=== PATIENT | female | born 1990 ===

== ENCOUNTER 2021-12-01 18:17 | Inpatient (IN) | payer MEDICAID, OTHER ==
[2021-12-01] MEDS ORDERED: HALOPERIDOL LACTATE 5 MG/ML 1 ML VIAL IM PRN (19:34)
[2021-12-01] MEDS ORDERED: MAGNESIUM HYDROXIDE 2,400 MG/10 ML CUP PO PRN (19:34)
[2021-12-01] MEDS ORDERED: MAG HYDROX/AL HYDROX/SIMETH 30 ML CUP PO PRN (19:34)
[2021-12-01] MEDS ORDERED: LORazepam 1 MG TAB PO PRN (19:34)
[2021-12-01] MEDS ORDERED: ACETAMINOPHEN TAB 325 MG TAB PO PRN (19:34)
[2021-12-01] MEDS ORDERED: haloperidoL 5 MG TAB PO PRN (19:42)
[2021-12-01] MEDS ORDERED: LORazepam 2 MG/ML INJ IM PRN (19:42)
[2021-12-02] MEDS: NICOTINE 14MG/24HR PATCH TRANSDERM SCH (08:48)
[2021-12-02 11:11] LABS: Basophils % (A) 1 %; Eosinophils # (A) 0.1 k/uL (0-0.7); Eosinophils % (A) 2 %; HCT 41.5 % (34.0-46.0); HGB 13.7 gm/dL (11.4-16.0); Lymphocytes # (A) 1.6 k/uL (1.0-4.8); Lymphocytes % (A) 28 %; MCH 30.4 pg (25.0-35.0); MCV 91.9 fL (80.0-100.0); Monocytes # (A) 0.5 k/uL (0-1.0); Monocytes % (A) 8 %; Neutrophils # (A) 3.4 k/uL (1.3-7.7); Neutrophils % (A) 58 %; Platelet Count 278 k/uL (150-450); RBC 4.52 m/uL (3.80-5.40); RDW 12.8 % (11.5-15.5); WBC 5.8 k/uL (3.8-10.6)
[2021-12-02 11:31] LABS: ALT 15 U/L (4-34); AST 20 U/L (14-36); African American GFR (CKD) >90 (>60 ml/min/1.73 sqM); Albumin 4.4 g/dL (3.5-5.0); Alkaline Phosphatase 51 U/L (38-126); Anion Gap 6 mmol/L; Blood Urea Nitrogen 11 mg/dL (7-17); Calcium 9.8 mg/dL (8.4-10.2); Carbon Dioxide 29 mmol/L (22-30); Chloride 103 mmol/L (98-107); Glucose 80 mg/dL (74-99); Non-African American GFR(CKD) >90 (>60 ml/min/1.73 sqM); Sodium 138 mmol/L (137-145); Total Bilirubin 0.3 mg/dL (0.2-1.3); Total Protein 7.4 g/dL (6.3-8.2)
--- NOTE | 2021-12-02 12:31 | P.HP ---
Psychiatric H&P - . H&P Date: 12/02/21 History & Physical: Allergies Allergy/AdvReac Type Severity Reaction Status Date / Time No Known Allergies Allergy Verified 12/02/21 01:53 Vital Signs Temp 98.3 F 12/02/21 01:36 Pulse 71 12/02/21 01:36 Resp 18 12/02/21 01:36 BP 116/72 12/02/21 01:36 Pulse Ox 99 12/02/21 01:36 FiO2 Intake & Output 12/01/21 12/02/21 12/02/21 18:59 06:59 18:59 Weight 70.3 kg 70.2 kg Laboratory Last Values WBC 5.8 k/uL (3.8-10.6) 12/02/21 10:10 RBC 4.52 m/uL (3.80-5.40) 12/02/21 10:10 Hgb 13.7 gm/dL (11.4-16.0) 12/02/21 10:10 Hct 41.5 % (34.0-46.0) 12/02/21 10:10 MCV 91.9 fL (80.0-100.0) 12/02/21 10:10 MCH 30.4 pg (25.0-35.0) 12/02/21 10:10 MCHC 33.0 g/dL (31.0-37.0) 12/02/21 10:10 RDW 12.8 % (11.5-15.5) 12/02/21 10:10 Plt Count 278 k/uL (150-450) 12/02/21 10:10 MPV 8.0 12/02/21 10:10 Neutrophils % 58 % 12/02/21 10:10 Lymphocytes % 28 % 12/02/21 10:10 Monocytes % 8 % 12/02/21 10:10 Eosinophils % 2 % 12/02/21 10:10 Basophils % 1 % 12/02/21 10:10 Neutrophils # 3.4 k/uL (1.3-7.7) 12/02/21 10:10 Lymphocytes # 1.6 k/uL (1.0-4.8) 12/02/21 10:10 Monocytes # 0.5 k/uL (0-1.0) 12/02/21 10:10 Eosinophils # 0.1 k/uL (0-0.7) 12/02/21 10:10 Basophils # 0.0 k/uL (0-0.2) 12/02/21 10:10 Sodium 138 mmol/L (137-145) 12/02/21 10:10 Potassium 5.0 mmol/L (3.5-5.1) 12/02/21 10:10 Chloride 103 mmol/L (98-107) 12/02/21 10:10 Carbon Dioxide 29 mmol/L (22-30) 12/02/21 10:10 Anion Gap 6 mmol/L 12/02/21 10:10 BUN 11 mg/dL (7-17) 12/02/21 10:10 Creatinine 0.75 mg/dL (0.52-1.04) 12/02/21 10:10 Est GFR (CKD-EPI)AfAm >90 (>60 ml/min/1.73 sqM) 12/02/21 10:10 Est GFR (CKD-EPI)NonAf >90 (>60 ml/min/1.73 sqM) 12/02/21 10:10 Glucose 80 mg/dL (74-99) 12/02/21 10:10 Calcium 9.8 mg/dL (8.4-10.2) 12/02/21 10:10 Total Bilirubin 0.3 mg/dL (0.2-1.3) 12/02/21 10:10 AST 20 U/L (14-36) 12/02/21 10:10 ALT 15 U/L (4-34) 12/02/21 10:10 Alkaline Phosphatase 51 U/L (38-126) 12/02/21 10:10 Total Protein 7.4 g/dL (6.3-8.2) 12/02/21 10:10 Albumin 4.4 g/dL (3.5-5.0) 12/02/21 10:10 TSH 1.500 mIU/L (0.465-4.680) 12/02/21 10:10 12/02/21 12:24 This is a psychiatric evaluation on Vida Cole who is a 31-year-old female and was hospitalized with a referral from the [facility]? Patient reports that she has that approximately 9 hospitalizations since age 14 When asked about her diagnoses and treatment she states that she's been diagnosed with "everything" Patient mentioned bipolar disorder depression and anxiety PTSD and schizophrenia She states that she does not agree with any of the diagnoses except for the anxiety disorder She says that she does not take any medications except for the nicotine supplement She said that she has no interest in taking any medications either She states that she came into the hospital because of "delusions of grandeur" he said that she thought that she was part of the FBI She denies that she is currently experiencing any such thoughts She denies any intention of harming herself or others She states that 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 Perceptions: Patient denies any visual hallucinations and denies any auditory hallucinations. Though content: There is no evidence of paranoid delusional thought content, although patient comes across as rather projective and seems to rationalize and intellectualize. Patient seemed to be very knowledgeable in the psychiatric terminology Thought process: Goal-directed sequential Low self-esteem and confidence Memory and concentration: Grossly intact for the purposes of this session. Judgment and insight: [place] and rationalizing Problem-solving skills are concrete with some denial about her illness Plan: -Patient continues to meet criteria for inpatient psychiatric admission for symptom stabilization and safety. -Medications: Patient has declined to consider any medications and does not meet the criteria for any involuntary medication administration at this time -NRT - nicotine patch -SW on board for discharge planning. Encouraged the patient to participate in milieu. [ Approximate length of stay will be 2-4 days Estevan Lauren Hicks 12/02/2021]
[2021-12-02 17:30] LABS: Chol/HDL Ratio 3.24 Ratio; LDL Cholesterol,Calculated 77.4 mg/dL (0.0-131.0)
[2021-12-03 06:52] VITALS: RESP 16
[2021-12-03] MEDS: NICOTINE 14MG/24HR PATCH TRANSDERM SCH (09:31)
[2021-12-03] MEDS: OLANZapine 5 MG TAB PO SCH (16:04)
--- NOTE | 2021-12-03 19:19 | PN ---
PROGRESS NOTE DATE OF SERVICE: 12/03/2021 CHIEF COMPLAINT: The patient was admitted for delusions and suicidal thinking. INTERVAL HISTORY: The patient had a quiet day yesterday. She comes out on the unit. She attended groups. She socializes with peers. She has been cooperative with care and appropriate in her behavior. She slept well last night. Today she has been up and continues to do the same. She attends groups and seems to engage fairly well in the group process. She talked today about her previous admission at [facility] in August. She seemed to indicate it was for similar issues. She has been declining medications. When we talked about the issues, it was noted that she was fairly disorganized in her thoughts on the subject. She would make references to being on medications which she said caused her problems. She was vague about particulars. Throughout the conversation she would become quite tearful. When she talked about her past experience in treatment, she was very adamant about the idea that she would choose not to take medications. When I reviewed the issue that she was in a petition process and that potentially she could be court-ordered to take her take medications, that was quite distressing to her. I encouraged her to consider taking medications now while she is on the unit, as she has nursing around her 16/12 and that she could at least give a trial of some medications to see whether or not it would be a problem for her. When I discussed different medications, it is noted that she was quite adamant about the idea she did not want to take Haldol, though she was not clear about what experience she might have had with Haldol. When I raised the question of Zyprexa, she seemed to indicate she had been on it in the past, including having received some shots of Zyprexa. She said that she would be willing to take the medication as a trial while she is on the unit. I also reviewed with her issues relating to the petition process. MENTAL STATUS EXAM: Patient was restless. She gave good eye contact. She answered questions for the most part appropriately. At times her thoughts were somewhat disorganized, though she spoke coherently and in a goal-directed manner. Her affect was intense. She smiled some, though she also was intermittently tearful and could become quite distressed. Her mood was somewhat dysphoric, though her mood fluctuated considerably throughout the interview. She seemed moderately distressed. There were indications of thought disorder with delusional thinking. She was oriented and alert. ASSESSMENT: I will continue the current diagnosis and treatment plan. I would consider a diagnosis of bipolar disorder with psychotic features. I discussed medication options with the patient. She was willing to start Zyprexa. I will start 5 mg twice a day. The patient asked for medications if she does get into significant anxiety. As such, I will also add Zyprexa 5 mg twice a day p.r.n. The indication of Zyprexa is for apparent manic and psychotic symptoms as well as to address physiologic stress response relating to some of the stress issues she has been experiencing. We will focus on stabilization and discharge planning. IGLESIA / BUSHRAN: [id number] /
[2021-12-03 20:13] LABS: Appearance,Urine Clear (Clear); Bacteria,Urine Rare /hpf; Bilirubin,Urine Negative (Negative); Blood,Urine Negative (Negative); Color,Urine Colorless; Glucose,Urine (UA) Negative (Negative); Hyaline Casts,Urine 1 /lpf (0-2); Ketones,Urine Negative (Negative); Leukocyte Esterase,Urine Moderate (Negative); Nitrite,Urine Negative (Negative); Protein,Urine Negative (Negative); RBC,Urine <1 /hpf (0-5); Specific Gravity,Urine 1.004 (1.001-1.035); Squamous Epithelial Cell,Urine 2 /hpf (0-4); Urobilinogen,Urine <2.0 mg/dL (<2.0); WBC,Urine 2 /hpf (0-5)
[2021-12-03] MEDS ORDERED: diphenhydrAMINE 50 MG CAP PO STA (23:26)
[2021-12-03] MEDS ORDERED: LORazepam 1 MG TAB PO STA (23:26)
[2021-12-04] MEDS: OLANZapine 5 MG TAB PO SCH ×2 (08:39→21:57)
[2021-12-04] MEDS: NICOTINE 14MG/24HR PATCH TRANSDERM SCH (08:39)
--- NOTE | 2021-12-04 10:03 | P.PN ---
Progress Note - Text Progress Note Date: 12/04/21 Interval History: Patient was seen wandering the hallways and was directable and agreeable to stephanie ye with sports book writer in the office. Patient appears to be fairly focused on her diagnosis of "DID" today and proceeded to speak about the events that occurred prior to her coming into the hospital. She states that she is transfer from [facility]. She was difficult to redirect during conversation. To be emotionally labile. She states that she is "withdrawing" however was not specific about what she is withdrawing from. She claims that she does not like taking medications however is agreeable to continue with taking them. She claims that she is still having anxiety and depression. Apparently patient was having psychotic symptoms when she came in to the hospital. She was making some illogical statements however for the most part was fairly goal oriented and speaking of severe distress with her symptoms. She spoke briefly about her childhood and being "misdiagnosed". At this time patient denies any suicidal or homical ideations, intent or plan. Patient denies any auditory, visual hallucinations. Patient denies any side effects from the medications and has been compliant with meds. Mental Status Exam: General Appearance: Patient appears to be stated age is alert, difficult to redirect, and attempts to be cooperative. dyed hair. Behavior: Patient is calmly seated without any agitated behavior. Labile emotionally. Tearful. Speech: Patient's speech is fluent and nonpressured. Rambles. Mood/Affect: Mood is anxious and depressed, affect is congruent and tearful Suicidality/Homicidality: Patient denies having any suicidal or homicidal ideation intent or plan. Perceptions: Patient denies any visual hallucinations and denies any auditory hallucinations Though content/process: Rambles, tangential, illogical at times. Not endorsing any paranoia or delusions today. Memory and concentration: AOX3, grossly intact for the purposes of this session Judgment and insight: Superficial, Improving mildly Assessment Bipolar disorder with psychotic features Cluster B personality disorder Nicotine dependence Plan: -Patient continues to meet criteria for inpatient psychiatric admission for symptom stabilization and safety. Patient has not signed medication consent and was placed in patient's chart. -Medications: Switched olanzapine to 5 mg daily at bedtime for mood stabilization/psychosis, start Prozac 20 mg daily for mood and anxiety. -When necessary Ativan and Haldol for agitation/aggression. -NRT - nicotine patch -SW on board for discharge planning. Encouraged the patient to participate in milieu.
[2021-12-04] MEDS: FLUoxetine HCL 20 MG CAP PO SCH (10:23)
[2021-12-04] MEDS: OLANZapine 5 MG TAB PO PRN (16:47)
[2021-12-05] MEDS: FLUoxetine HCL 20 MG CAP PO SCH (08:47)
[2021-12-05] MEDS: NICOTINE 14MG/24HR PATCH TRANSDERM SCH (08:47)
--- NOTE | 2021-12-05 12:18 | P.PN ---
Progress Note - Text Progress Note Date: 12/05/21 Interval History: Patient was seen taking part in group today and was directable and agreeable to speak with fiction and nonfiction writer prose in the office. She claims that her mood and anxiety has been gradually improving. She states t hat she is homeless at this time and wants to have resources. She claims that her emotional lability has been improving. She claims that she has been going to groups and interacting with other patients on the unity fairly well. She was making some illogical statements however for the most part was fairly goal oriented and speaking of severe distress with her symptoms. At this time patient denies any suicidal or homical ideations, intent or plan. Patient denies any auditory, visual hallucinations. Patient denies any side effects from the medications and has been compliant with meds. Mental Status Exam: General Appearance: Patient appears to be stated age is alert, difficult to redirect, and attempts to be cooperative. dyed hair. Behavior: Patient is calmly seated without any agitated behavior. not tearful today. Speech: Patient's speech is fluent and nonpressured. Rambles, improving mildly. Mood/Affect: Mood is "a bit better", affect is congruent Suicidality/Homicidality: Patient denies having any suicidal or homicidal ideation intent or plan. Perceptions: Patient denies any visual hallucinations and denies any auditory hallucinations Though content/process: Rambles, improving mildly. Not endorsing any paranoia or delusions today. Memory and concentration: AOX3, grossly intact for the purposes of this session Judgment and insight: Improving mildly Assessment: Bipolar disorder with psychotic features Cluster B personality disorder Nicotine dependence Plan: -Patient continues to meet criteria for inpatient psychiatric admission for symptom stabilization and safety. Patient has not signed medication consent and was placed in patient's chart. -Medications: olanzapine 5 mg daily at bedtime for mood stabilization/psychosis, continue with Prozac 20 mg daily for mood and anxiety. -When necessary Ativan and Haldol for agitation/aggression. -NRT - nicotine patch -SW on board for discharge planning. Encouraged the patient to participate in milieu. likely discharge in 1-2 days back home.
[2021-12-05] MEDS: OLANZapine 5 MG TAB PO SCH (22:56)
--- NOTE | 2021-12-06 09:01 | P.HPMEDMHU ---
<Marcello Silveira - Last Filed: 12/06/21 19:17> History of Present Illness H&P Date: 12/06/21 History of Presenting Illness: Patient is a 31-year-old female with a past medical history of hepatitis C statu s post treatment with [facility] in 2020, history of polysubstance abuse with cocaine, marijuana and hallucinogens/mushrooms. Patient currently admitted to inpatient mental health unit secondary to suicidal ideations. We have been consulted for continued medical management throughout her hospitalization. Patient seen and fully evaluated on unit. Patient high per verbal and appears very anxious. Patient appeared to be defensive throughout assessment. She reports last menstrual cycle was last month status post plan B, current urine hCG negative. Patient denies having any headache, lightheadedness, dizziness, chest pain, palpitations, shortness of breath, abdominal pain, or experiencing any numbness/tingling/weakness in her extremities. Patient does report to daily vape use with marijuana and nicotine. She currently reports that she is depressed and has had thoughts of suicide but currently denies having a suicidal plan. Patient denies feeling anxious or experiencing any visual, tactile, or auditory hallucinations. Patient denies having any other concerns or needs at this time. Review of systems: Pertinent positives and negatives as discussed in HPI, a complete review of syst ems was performed and all other systems are negative. Physical exam: Vital signs reviewed and stable. General: Nontoxic, no distress and appears stated age. Derm: Skin warm and dry, normal coloration for ethnicity. Head: Atraumatic, normocephalic and symmetric. Eyes: EOMs intact, no lid lag, and anicteric sclera Mouth: no lip lesions, mucus membranes moist Cardiovascular: regular rate and rhythm with normal S1S2, no murmur, positive posterior tibial pulses bilaterally, and cap refill < 2 seconds. Lungs: Respirations even, regular, and unlabored on room air. Lungs CTA bilaterally, no rhonchi, no rales, no wheezing, and no accessory muscle usage. Abdominal: soft, nontender to palpation, no guarding, no appreciable organomegaly Ext: ROM intact. No gross muscle atrophy, no edema, no contractures Neuro: Speech clear, face symmetrical and CN II-XII grossly intact with no noted focal neuro deficits Psych: Alert and oriented to person, place, time, and situation. Appropriate and pleasant affect. Assessment and Plan of Care: Polysubstance abuse with cocaine, marijuana, and hallucinogens/mushrooms -Recommend cessation of use. Nicotine dependence -Recommend cessation of use. -Nicotine patch Suicidal ideation Bipolar disorder -Management per primary admitting psychiatric team. Thank you for allowing us to participate in the care of this pleasant patient. Do not hesitate to contact us with questions. Someone can be reached from the [facility] hospitalist group all hours of the day at [phone] or via [employer]. Past Medical History Past Medical History: No Reported History Additional Past Medical History / Comment(s): Per patient: she was cured for Hep C History of Any Multi-Drug Resistant Organisms: None Reported Past Surgical History: No Surgical Hx Reported Past Anesthesia/Blood Transfusion Reactions: No Reported Reaction Past Psychological History: Anxiety, Bipolar, PTSD Smoking Status: Current some day smoker, Vaper Additional Past Alcohol Use History / Comment(s): Patient states she use to abuse alcohol daily but then broke up with her BF and realized she had a problem and has been 60 days sober. Upon admission today she admits to having 2 drinks within the past 2 weeks. Past Drug Use History: Marijuana Medications and Allergies Home Medications Medication Instructions Recorded Confirmed Type FLUoxetine HCL [PROzac] 30 mg PO DAILY 30 Days cap 12/07/21 Rx Nicotine 14Mg/24Hr Patch [Habitrol] 1 patch TRANSDERM DAILY 14 Days 12/07/21 Rx patch QUEtiapine [SEROquel] 75 mg PO HS 30 Days tab 12/07/21 Rx Allergies Allergy/AdvReac Type Severity Reaction Status Date / Time No Known Allergies Allergy Verified 12/02/21 01:53 Physical Exam Vitals: Vital Signs Temp Pulse Resp BP 12/06/21 00:10 97.8 F 77 16 132/79 Cranial Nerve Examination - Cranial Nerves Cranial Nerve II- Optic: Intact Cranial Nerve III- Oculomotor: Intact Cranial Nerve IV- Trochlear: Intact Cranial Nerve V- Trigeminal: Intact Cranial Nerve - Abducens: Intact Cranial Nerve VII- Facial: Intact Cranial Nerve VIII- Auditory: Intact Cranial Nerve IX- Glossopharyngeal: Intact Cranial Nerve X- Vagus: Intact Cranial Nerve XI- Accessory: Intact Cranial Nerve XII- Hypoglossal: Intact Results CBC & Chem 7: 12/02/21 10:10 12/02/21 10:10 Thrombosis Risk Factor Assmnt - Choose All That Apply Any of the Below Risk Factors Present?: No Other Risk Factors: No Other congenital or acquired thrombophilia - If yes, enter type in comment: No Thrombosis Risk Factor Assessment Level: Very Low Risk <Dawood Romero - Last Filed: 12/07/21 17:59> History of Present Illness I reviewed the documentation as provided by the ANNABEL above, who is the original author of this note. I agree with the documented assessment and plan, with the following changes: none Physical Exam Vitals: Vital Signs Temp Pulse Resp BP 12/07/21 06:34 98 F 88 16 107/59 Results CBC & Chem 7: 12/02/21 10:10 12/02/21 10:10
[2021-12-06] MEDS: FLUoxetine HCL 20 MG CAP PO SCH (09:23)
[2021-12-06] MEDS: NICOTINE 14MG/24HR PATCH TRANSDERM SCH (09:23)
[2021-12-06] MEDS ORDERED: FLUoxetine HCL 10 MG CAP PO STA (10:37)
--- NOTE | 2021-12-06 11:10 | P.PN ---
Progress Note - Text Progress Note Date: 12/06/21 Interval History: Patient was seen taking part in group today and was directable and agreeable to speak with greeting card writer in the office. She claims that her mood and anxiety has been gradually improving however does state that she is having significant side effects from the olanzapine. She states that she is having blurry vision for the past 2 or 3 days and also claims that she is getting "[place]". She states that she would like to have the medications changed if possible. She appears to be more directable during conversation however does have some moments of tearfulness and spoke about "trauma" that she is trying to work through. She states that she is going to groups and participating with other people on the unit. She states that she was able to sleep fairly last night. Showering and also has a fair appetite. Not endorsing any delusions or paranoia today. At this time patient denies any suicidal or homical ideations, intent or plan. Patient denies any auditory, visual hallucinations. Mental Status Exam: General Appearance: Patient appears to be stated age is alert, difficult to redirect, and attempts to be cooperative. dyed hair. Behavior: Patient is calmly seated without any agitated behavior. tearful at times. Speech: Patient's speech is fluent and nonpressured, improving mildly. Mood/Affect: Mood is "better but still sad", affect is congruent and tearful Suicidality/Homicidality: Patient denies having any suicidal or homicidal ideation intent or plan. Perceptions: Patient denies any visual hallucinations and denies any auditory hallucinations Though content/process: more goal oriented and logical today. Not endorsing any paranoia or delusions today. Memory and concentration: AOX3, grossly intact for the purposes of this session Judgment and insight: Improving mildly Assessment: Bipolar disorder with psychotic features Cluster B personality disorder Nicotine dependence Plan: -Patient continues to meet criteria for inpatient psychiatric admission for symptom stabilization and safety. Patient has not signed medication consent and was placed in patient's chart. -Medications: Olanzapine 5 mg daily at bedtime for mood stabilization/psychosis, continue with Prozac 20 mg daily for mood and anxiety -When necessary Ativan and Haldol for agitation/aggression. -NRT - nicotine patch -SW on board for discharge planning. Encouraged the patient to participate in milieu. likely discharge tomorrow to [facility].
[2021-12-06] MEDS: OLANZapine 5 MG TAB PO PRN (11:23)
[2021-12-06] MEDS ORDERED: QUEtiapine 25 MG TAB PO SCH (21:00)
[2021-12-07 07:06] VITALS: BP 107/59; PULSE 88; TEMP 98
[2021-12-07] MEDS: NICOTINE 14MG/24HR PATCH TRANSDERM SCH (08:54)
[2021-12-07] MEDS ORDERED: FLUoxetine HCL 10 MG CAP PO SCH (09:00)
--- NOTE | 2021-12-07 11:13 | P.DS ---
Providers Date of admission: 12/02/21 01:28 Expected date of discharge: 12/07/21 Attending physician: Javier Momin MD Consults: 12/01/21 19:34 Consult Physician Routine Consulting Provider: Jeannie Trejo Consult Reason/Comments: medical management Do you want consulting provider notified?: Yes Primary care physician: Stated None - Discharge Diagnosis(es) (1) Bipolar disorder with psychotic features Current Visit: Yes Status: Acute Priority: High (2) Cluster B personality disorder Current Visit: Yes Status: Acute Priority: Medium (3) Nicotine dependence Current Visit: Yes Status: Acute Priority: Low Hospital Course: Admission HPI: Admission note was completed by Dr Aguilar "This is a psychiatric evaluation on Vida Cole who is a 31-year-old female and was hospitalized with a referral from the [facility]? Patient reports that she has that approximately 9 hospitalizations since age 14 When asked about her diagnoses and treatment she states that she's been diagnosed with "everything" Patient mentioned bipolar disorder depression and anxiety PTSD and schizophrenia She states that she does not agree with any of the diagnoses except for the anxiety disorder She says that she does not take any medications except for the nicotine supplement She said that she has no interest in taking any medications either She states that she came into the hospital because of "delusions of grandeur" he said that she thought that she was part of the FBI She denies that she is currently experiencing any such thoughts She denies any intention of harming herself or others She states that 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 Patient got along well with other patients on the unit and followed unit protocol. Patient was compliant with the medications and denied any side effects throughout hospital course. Patient was started on Zyprexa however due to side effects it was changed to Seroquel 75 mg daily at bedtime for mood stabilization/psychosis/insomnia. Patient was also started on Prozac and increased her dose of 30 mg daily for mood/anxiety. Patient spoke of her stressors and engaged in therapy both group and individual. Patient was also seen by medical team for history and physical exam. Throughout the course of the hospitalization patient gradually improved with regards to mood, anxiety, sleep and became more future oriented with improved insight and judgment. On the day of discharge patient denied any suicidal or homicidal ideations intent or plan denied any auditory or visual hallucinations. Patient endorsed wanting to live for her future and her health. The patient denied any access to guns or weapons. Patient denied any paranoia and did not endorse any delusions. Patient does not have a significant history of substance abuse and was counseled on abstaining from all substances including alcohol and marijuana. Patient was also counseled on the medications and need for regular compliance and was encouraged to follow-up with their outpatient appointment for mental health and also for primary care. Prior to discharge a family meeting will be arranged by licensed master social worker to answer any questions and ensure safety upon discharge. Mental status exam: General Appearance: Patient appears to be stated age is alert, pleasant, and cooperative. Patient is in no acute distress and has improved hygiene and grooming Behavior: Patient is calmly seated without any agitated behavior. Speech: Patient's speech is fluent and nonpressured. Mood/Affect: Patient reports their mood is "really good", affect is congruent and euthymic. Suicidality/Homicidality: Patient denies having any suicidal or homicidal ideation intent or plan. Perceptions: Patient denies any auditory or visual hallucinations. Though content/process: There is no evidence of any delusional thought content and thought process is linear and goal-directed. more future oriented Memory and concentration: AOX3, grossly intact for the purposes of this session. Can spell "WORLD" backwards correctly. Judgment and insight: chronically poor, however has improved with guarded prognosis Impression: Bipolar disorder, with psychotic features Cluster B personality disorder Nicotine dependence Plan: -Continue with discharge today as patient has improved and stabilized psychiatrically and is not currently an imminent threat to herself and/or others. Patient will remain at chronically elevated risk for harm to self and/or others due to her impulsivity -Continue medications: Seroquel 75 mg daily at bedtime for mood stabilization/psychosis, Prozac 30 mg daily for mood/anxiety. -Patient was counseled on the need for medication compliance and appropriate follow-up at mental health and also primary care for medical issues. Patient verbalized understanding and agreed. -Social work to arrange for and conduct family meeting to ensure safety upon discharge and answer any questions/concerns. Social work also to arrange for patients follow up appointments for psychiatric care along with follow up with primary care provider. -Patient counseled on abstaining from recreational drugs and marijuana and alcohol. Was informed/educated on the adverse effects on their physical and mental health. Patient verbally agreed and understood. -Patient was instructed to return to the hospital or seek immediate medical care if their psychiatric or medical symptoms do worsen or reoccur. Allergies Allergy/AdvReac Type Severity Reaction Status Date / Time No Known Allergies Allergy Verified 12/02/21 01:53 Laboratory Results WBC 5.8 k/uL (3.8-10.6) 12/02/21 10:10 RBC 4.52 m/uL (3.80-5.40) 12/02/21 10:10 Hgb 13.7 gm/dL (11.4-16.0) 12/02/21 10:10 Hct 41.5 % (34.0-46.0) 12/02/21 10:10 MCV 91.9 fL (80.0-100.0) 12/02/21 10:10 MCH 30.4 pg (25.0-35.0) 12/02/21 10:10 MCHC 33.0 g/dL (31.0-37.0) 12/02/21 10:10 RDW 12.8 % (11.5-15.5) 12/02/21 10:10 Plt Count 278 k/uL (150-450) 12/02/21 10:10 MPV 8.0 12/02/21 10:10 Neutrophils % 58 % 12/02/21 10:10 Lymphocytes % 28 % 12/02/21 10:10 Monocytes % 8 % 12/02/21 10:10 Eosinophils % 2 % 12/02/21 10:10 Basophils % 1 % 12/02/21 10:10 Neutrophils # 3.4 k/uL (1.3-7.7) 12/02/21 10:10 Lymphocytes # 1.6 k/uL (1.0-4.8) 12/02/21 10:10 Monocytes # 0.5 k/uL (0-1.0) 12/02/21 10:10 Eosinophils # 0.1 k/uL (0-0.7) 12/02/21 10:10 Basophils # 0.0 k/uL (0-0.2) 12/02/21 10:10 Sodium 138 mmol/L (137-145) 12/02/21 10:10 Potassium 5.0 mmol/L (3.5-5.1) 12/02/21 10:10 Chloride 103 mmol/L (98-107) 12/02/21 10:10 Carbon Dioxide 29 mmol/L (22-30) 12/02/21 10:10 Anion Gap 6 mmol/L 12/02/21 10:10 BUN 11 mg/dL (7-17) 12/02/21 10:10 Creatinine 0.75 mg/dL (0.52-1.04) 12/02/21 10:10 Est GFR (CKD-EPI)AfAm >90 (>60 ml/min/1.73 sqM) 12/02/21 10:10 Est GFR (CKD-EPI)NonAf >90 (>60 ml/min/1.73 sqM) 12/02/21 10:10 Glucose 80 mg/dL (74-99) 12/02/21 10:[address] Glu mg/dL 99 12/02/21 10:10 Hemoglobin A1c 5.1 % (0.0-6.0) 12/02/21 10:10 Calcium 9.8 mg/dL (8.4-10.2) 12/02/21 10:10 Total Bilirubin 0.3 mg/dL (0.2-1.3) 12/02/21 10:10 AST 20 U/L (14-36) 12/02/21 10:10 ALT 15 U/L (4-34) 12/02/21 10:10 Alkaline Phosphatase 51 U/L (38-126) 12/02/21 10:10 Total Protein 7.4 g/dL (6.3-8.2) 12/02/21 10:10 Albumin 4.4 g/dL (3.5-5.0) 12/02/21 10:10 Triglycerides 121.00 mg/dL (0.00-149.00) 12/02/21 10:10 Cholesterol 147.00 mg/dL (0.00-200.00) 12/02/21 10:10 LDL Cholesterol, Calc 77.4 mg/dL (0.0-131.0) 12/02/21 10:10 VLDL Cholesterol, Calc 24.20 mg/dL (5.00-40.00) 12/02/21 10:10 HDL Cholesterol 45.40 mg/dL (40.00-60.00) 12/02/21 10:10 Cholesterol/HDL Ratio 3.24 Ratio 12/02/21 10:10 TSH 1.500 mIU/L (0.465-4.680) 12/02/21 10:10 Urine Color Colorless 12/03/21 19:32 Urine Appearance Clear (Clear) 12/03/21 19:32 Urine pH 6.0 (5.0-8.0) 12/03/21 19:32 Ur Specific [place] 1.004 (1.001-1.035) 12/03/21 19:32 Urine Protein Negative (Negative) 12/03/21 19:32 Urine Glucose (UA) Negative (Negative) 12/03/21 19:32 Urine Ketones Negative (Negative) 12/03/21 19:32 Urine Blood Negative (Negative) 12/03/21 19:32 Urine Nitrite Negative (Negative) 12/03/21 19:32 Urine Bilirubin Negative (Negative) 12/03/21 19:32 Urine Urobilinogen <2.0 mg/dL (<2.0) 12/03/21 19:32 Ur Leukocyte Esterase Moderate (Negative) H 12/03/21 19:32 Urine RBC <1 /hpf (0-5) 12/03/21 19:32 Urine WBC 2 /hpf (0-5) 12/03/21 19:32 Ur Squamous Epith Cells 2 /hpf (0-4) 12/03/21 19:32 Urine Bacteria Rare /hpf (None) H 12/03/21 19:32 Hyaline Casts 1 /lpf (0-2) 12/03/21 19:32 Urine HCG, Qual Not Detected (Not Detectd) 12/03/21 19:32 Vital Signs Temp 98 F 12/07/21 06:34 Pulse 88 12/07/21 06:34 Resp 16 12/07/21 06:34 BP 107/59 12/07/21 06:34 Pulse Ox 100 12/04/21 06:47 FiO2 Patient Condition at Discharge: Stable Plan - Discharge Summary Discharge Rx Participant: No New Discharge Prescriptions: New QUEtiapine [SEROquel] 75 mg PO HS 30 Days tab Nicotine 14Mg/24Hr Patch [Habitrol] 1 patch TRANSDERM DAILY 14 Days patch FLUoxetine HCL [PROzac] 30 mg PO DAILY 30 Days cap Discharge Medication List FLUoxetine HCL [PROzac] 30 mg PO DAILY 30 Days cap 12/07/21 [Rx] Nicotine 14Mg/24Hr Patch [Habitrol] 1 patch TRANSDERM DAILY 14 Days patch 12/07/21 [Rx] QUEtiapine [SEROquel] 75 mg PO HS 30 Days tab 12/07/21 [Rx] Follow up Appointment(s)/Referral(s): Petey Flores [Other] - 12/10/21 1:00 pm (With Maurice) [facility] [NON-STAFF] - 1 Week Patient Instructions/Handouts: Bipolar Disorder (DC) Activity/Diet/Wound Care/Special Instructions: Avoid the use of street drugs and alcohol. Take all prescriptions as prescribed. When you are in need of refills on your medications, please contact your medical provider and/or outpatient psychiatrist to have this done. Please go to scheduled outpatient appointment for aftercare treatment. If symptoms return or become worse, call the crisis line at and/or go to the nearest emergency room for evaluation. Discharge Disposition: HOME SELF-CARE
== END 2021-12-07 11:00 | disposition home or self-care (01) | DRG 885 ==
LOC: 3MHU 12-02 01:28
PROVIDERS: ADMIT Psychiatry & Neurology Psychiatry; ATTEND Psychiatry & Neurology Psychiatry
DX: F31.5 Bipolar disorder, current episode depressed, severe, with psychotic features (principal); R45.851 Suicidal ideations; F17.210 Nicotine dependence, cigarettes, uncomplicated; F43.10 Post-traumatic stress disorder, unspecified; F14.10 Cocaine abuse, uncomplicated; F12.10 Cannabis abuse, uncomplicated; F16.10 Hallucinogen abuse, uncomplicated; M19.90 Unspecified osteoarthritis, unspecified site; F60.89 Other specific personality disorders; G47.00 Insomnia, unspecified; Z79.899 Other long term (current) drug therapy
CPT/HCPCS: 80053; 80061; 81001; 81025; 83036; 84443; 85025